=== PATIENT | male | born 1960 | race Caucasian/White ===

== ENCOUNTER 2024-02-04 11:53 | Day surgery (SDC) | payer BC ==
[2024-02-03 08:53] VITALS: BMI 30.9
[~2024-02-04 11:53] MED LIST: LACTATED RINGERS 1,000 ML IV SCH
[2024-02-04 12:56] VITALS: TEMP 97.8
[2024-02-04] MEDS: LACTATED RINGERS 1,000 ML IV SCH (13:07)
[2024-02-04] MEDS: IV FLUID CONTINUATION 1,000 ML IV ONE (13:09)
[2024-02-04] MEDS ORDERED: KETAMINE HCL IN 0.9 % NACL 50 MG/5 ML SYRINGE ONE (13:35)
[2024-02-04] MEDS ORDERED: LIDOCAINE 1% INJ 10MG/ML (20 ML MDV) ONE (13:35)
[2024-02-04] MEDS ORDERED: PROPOFOL 10 MG/ML 20 ML VIAL IV ONE (13:35)
[2024-02-04] MEDS: LIDOCAINE 2% INJ 20 MG/ML INTRATRACH ONE (13:42)
[2024-02-04 13:57] VITALS: RESP 12
[2024-02-04 14:13] VITALS: BP 107/67; PULSE 82
--- NOTE | 2024-02-04 19:34 | P.PCN ---
Date of Procedure: 02/04/24 Preoperative Diagnosis: Abnormal CAT scan of the chest with questionable tracheal lesion Postoperative Diagnosis: Diffuse tracheobronchitis Respiratory secretions/mucus scattered throughout the airways Tracheobronchomalacia No evidence of any lesions Procedure(s) Performed: Bronchoscopy Anesthesia: MAC Surgeon: Cat Zhong Estimated Blood Loss (ml): 0 Pathology: none sent Condition: stable Disposition: same day Operative Findings: Flexible bronchoscopy was done for an airway inspection. The patient had an abnormalCAT scan of the chest did raise a suspicion for a tracheal lesion. The procedure was done under conscious sedation. A consent was obtained. A timeout was done. The procedure was done in the endoscopy unit. After achieving adequate sedation, the flexible bronchoscope was inserted to the right nostril and was advanced into the upper airway. Examination of the posterior pharynx, larynx, arytenoids, vallecula, and the vocal cords were all within normal limits. The patient had normal vocal cord function and structure. There was normal abduction and adduction. A total of 2 cc of 1% lidocaine was applied to the vocal cord, and the flexible bronchoscope was advanced into the upper trachea. Examination of the airways was done and there was evidence of white milky respiratory secretions scattered throughout the tracheal wall and similar secretions also noted in the lower lobes bilaterally. The underlying bronchial mucosa was quite inflamed and erythematous. Upon careful inspection, there was no endobronchial tumors or lesions. The respiratory secretions were suctioned out easily without any major difficulties. Airway inspection included the entire trachea, bilateral mainstem bronchi, right upper lobe bronchus, bronchus and medius, right middle lobe bronchus and the right lower lobe bronchus and the various 10 segments on the right and examination of the left side include left mainstem bronchus, left upper and left lower lobe bronchi and the various 8 segments on the left. At the completion of the procedure, the majority of the respiratory secretions were suctioned out. There was a obvious component of tracheobronchomalacia. No foreign bodies. No lesions. No polyps. No concerning mucosal growth. The flexible bronchoscope was removed and the patient was transferred to recovery in stable condition Plan Smoking cessation. Patient was reassured. Continue low-dose CAT scan images on a yearly basis.
== END 2024-02-04 14:28 | disposition home or self-care (01) ==
LOC: ORWHC2ENDO 11:53
PROVIDERS: ATTEND Internal Medicine Critical Care Medicine
DX: J98.09 Other diseases of bronchus, not elsewhere classified (principal); J40 Bronchitis, not specified as acute or chronic; E78.5 Hyperlipidemia, unspecified; G47.33 Obstructive sleep apnea (adult) (pediatric); F17.210 Nicotine dependence, cigarettes, uncomplicated; Z99.89 Dependence on other enabling machines and devices; Z79.899 Other long term (current) drug therapy; Z88.5 Allergy status to narcotic agent; Z88.8 Allergy status to other drugs, medicaments and biological substances
CPT/HCPCS: 31624; J2003 ×2; J2704; 31645